=== PATIENT | female | born 1970 | race Caucasian/White ===

== ENCOUNTER 2021-08-20 07:10 | Day surgery (SDC) | payer BC ==
[2021-08-20] MEDS ORDERED: Propofol 200 MG/20 ML SDV IV ONE (07:11)
[2021-08-20] MEDS ORDERED: Lidocaine 1% PF 2 ML SDV INJECT ONE (07:11)
[2021-08-20] MEDS ORDERED: Sodium Chloride 0.9% 10 ML Syringe FLUSH PRN (07:15)
[2021-08-20] MEDS ORDERED: Lactated Ringers 1,000 ML IV SCH (07:15)
== END 2021-08-20 09:30 | disposition home or self-care (01) ==
LOC: FB.SDS 07:10
PROVIDERS: ATTEND Surgery
DX: Z12.11 Encounter for screening for malignant neoplasm of colon (principal); K57.30 Diverticulosis of large intestine without perforation or abscess without bleeding; I10 Essential (primary) hypertension; Z79.899 Other long term (current) drug therapy; Z88.1 Allergy status to other antibiotic agents
CPT/HCPCS: 45378; 81025; J2704; J7120; 00812-QZ

== ENCOUNTER 2024-05-01 06:44 | Day surgery (SDC) | payer BC ==
[2024-05-01] MEDS ORDERED: Lidocaine 2% 100 MG/5 ML Syringe IVPUSH ONE (06:45)
[2024-05-01] MEDS ORDERED: Sodium Chloride 0.9% 10 ML Syringe FLUSH PRN (06:45)
[2024-05-01] MEDS ORDERED: Propofol 200 MG/20 ML SDV IV ONE (06:45)
[2024-05-01] MEDS ORDERED: Midazolam 1 MG/ML 2 ML SDV IV ONE (06:45)
[2024-05-01] MEDS: Lactated Ringers 1,000 ML IV SCH (07:51)
[2024-05-01] MEDS: Simethicone Drops 40 MG/0.6 ML 30 ML Bottle ONE (08:07)
== END 2024-05-01 09:50 | disposition home or self-care (01) ==
LOC: FB.SDS 06:44
PROVIDERS: ATTEND Surgery
DX: K21.00 Gastro-esophageal reflux disease with esophagitis, without bleeding (principal); K31.7 Polyp of stomach and duodenum; K29.80 Duodenitis without bleeding; I10 Essential (primary) hypertension; Z79.899 Other long term (current) drug therapy
CPT/HCPCS: 88305; A9270-GY; J2250; J2704; J7120